=== PATIENT | female | born 1995 | race Caucasian/White ===

== ENCOUNTER → 2025-06-30 | Outpatient (CLI) | payer OTHER ==
[2025-06-30 13:29] LABS: PLATELET COUNT, AUTOMATED 256 10^3/uL (150-450)
[2025-06-30 14:24] LABS: HIV 1&2 SCREEN NEGATIVE (NEGATIVE)
[2025-06-30 14:32] LABS: HEPATITIS C VIRUS ABY INDEX < 0.02 INDEX (<0.8)
[2025-06-30 14:40] LABS: Trichomonas vaginalis (AMP) NOT DETECTED (NEGATIVE)
[2025-06-30 15:03] LABS: GC DNA AMPLIFICATION NEGATIVE (NEGATIVE)
== END ==
LOC: M PLALAB 11:55
PROVIDERS: ATTEND Nurse Practitioner Family
DX: Z34.80 Encounter for supervision of other normal pregnancy, unspecified trimester (principal)

== ENCOUNTER → 2025-07-28 | Outpatient (CLI) | payer OTHER | LOC: M PLALAB 11:02 | PROVIDERS: ATTEND Student in an Organized Health Care Education/Training Program | DX: Z34.80 Encounter for supervision of other normal pregnancy, unspecified trimester (principal) ==

== ENCOUNTER → 2025-08-22 | Outpatient (CLI) | payer OTHER | LOC: M WHC 07:52 | PROVIDERS: ATTEND Student in an Organized Health Care Education/Training Program | DX: Z34.82 Encounter for supervision of other normal pregnancy, second trimester (principal); Z3A.20 20 weeks gestation of pregnancy ==

== ENCOUNTER → 2025-09-14 | Outpatient (CLI) | payer OTHER | LOC: M WHC 09:50 | PROVIDERS: ATTEND Student in an Organized Health Care Education/Training Program | DX: Z34.92 Encounter for supervision of normal pregnancy, unspecified, second trimester (principal); Z3A.23 23 weeks gestation of pregnancy ==

== ENCOUNTER → 2025-09-27 | Outpatient (CLI) | payer OTHER ==
[2025-09-27 18:16] LABS: PLATELET COUNT, AUTOMATED 309 10^3/uL (150-450)
[2025-09-27 18:42] LABS: GLUCOSE CHALLENGE TEST 1 HOUR 126 MG/DL (LESS THAN 140)
[2025-09-27 19:17] LABS: HIV 1&2 SCREEN NEGATIVE (NEGATIVE)
[2025-09-27 19:25] LABS: HEPATITIS C VIRUS ABY INDEX < 0.02 INDEX (<0.8)
[2025-09-27 21:54] LABS: Trichomonas vaginalis (AMP) NOT DETECTED (NEGATIVE)
[2025-09-27 22:17] LABS: GC DNA AMPLIFICATION NEGATIVE (NEGATIVE)
== END ==
LOC: M PLALAB 14:52
PROVIDERS: ATTEND Advanced Practice Midwife
DX: O09.212 Supervision of pregnancy with history of pre-term labor, second trimester (principal); Z3A.00 Weeks of gestation of pregnancy not specified